=== PATIENT | female | born 1970 | race Caucasian/White ===

== ENCOUNTER 2017-10-23 13:17 | Emergency (ER) | payer OTHER ==
[2017-10-23] MEDS ORDERED: ONDANSETRON 4 MG/2 ML VIAL IVP ONE (13:40)
[2017-10-23] MEDS ORDERED: NS 1,000 ML IV ONE (13:40)
[2017-10-23 13:44] VITALS: TEMP 97.7
--- NOTE | 2017-10-23 13:44 | EDPHY ---
H & P Time Seen by Provider: 10/23/17 13:35 HPI/ROS: CHIEF COMPLAINT: Abdominal pain HISTORY OF PRESENT ILLNESS: Patient is a 46-year-old female with previous appendectomy and who presents to the emergency department with acute onset of abdominal pain. Patient states her pain came on suddenly. It started about 10 min after eating heart blood ache. She describes her pain and is just to the left of the umbilicus and low in her abdomen. It radiates to both flanks. She describes nausea but no vomiting. No diarrhea. No dysuria or frequency. No hematuria. No previous kidney stones. No fevers or chills. Last menstrual period is currently and 1 month previous. REVIEW OF SYSTEMS: My complete review of systems is negative except as mentioned in the HPI. Past Medical/Surgical History: Includes CVA, pericarditis, high cholesterol, anxiety, PTSD Past surgical history: Includes appendectomy, , abdominal plasty Social history: Patient does not smoke Smoking Status: Never smoked Physical Exam: Vitals noted GENERAL: Mild acute distress, alert. HEENT: Eyes normal to inspection, normal pharynx, no signs of dehydration. NECK: No thyromegaly, no lymphadenopathy, supple. RESPIRATORY: Clear to auscultation bilaterally, no rales, rhonchi or wheezing. CVS: Regular rate and rhythm, no rubs, murmurs, or gallops. ABDOMEN: Soft, patient has tenderness to palpation just lateral and inferior to the umbilicus, nondistended, no organomegaly. Normal bowel sounds. BACK: Normal to inspection, no CVA tenderness. SKIN: Normal color, no rash, warm, dry. No pallor. EXTREMITIES: No pedal edema, no calf tenderness, no Homans sign or cords, no joint swelling. NEURO/PSYCH: Alert and oriented x3, normal mood and affect, normal motor sensory exam. No obvious cranial nerve deficit. Constitutional: Initial Vital Signs Temperature (C) 36.5 C 10/23/17 13:39 Heart Rate 68 10/23/17 13:39 Respiratory Rate 18 10/23/17 13:39 Blood Pressure 123/84 H 10/23/17 13:39 O2 Sat (%) 99 10/23/17 13:39 O2 Delivery Mode Room Air Allergies/Adverse Reactions: No Known Allergies Allergy (Verified 10/23/17 13:33) Home Medications: Medication Instructions Recorded Sertraline HCl [Zoloft] 25 mg PO DAILY 10/19/11 buPROPion SR [Wellbutrin] 150 mg PO BID 10/19/11 Aspirin 325 mg (OTC) 12/15/14 Ambien 06/04/15 Amlodipine Besylate 10/23/17 Hydrocodone/APAP 5/325 [Faith 1 - 2 tab PO Q4 #13 tab 10/23/17 5/325 (RX)] Lisinopril 10/23/17 Methotrexate 10/23/17 Ondansetron Odt [Zofran Odt 4 mg 4 mg PO Q4PRN PRN #7 tab 10/23/17 (*)] Plaquenil 200 mg (*) 10/23/17 Medical Decision Making - Diagnostics Imaging Results: Imaging Impressions Abdomen/Pelvis CT 10/23/17 13:41 Impression: 1. No evidence of urinary tract calculus. 2. Cholelithiasis without secondary findings of cholecystitis. Attention: This CT examination is specifically designed to evaluate patients who are clinically suspected of having acute obstructive uropathy. This examination does not use radiographic contrast, and as such, provides only a limited evaluation of the abdomen, pelvis and retroperitoneum. If there is further clinical suspicion for pathological conditions other than obstructive uropathy, a complete CT evaluation of the abdomen and pelvis utilizing intravenous, oral, and rectal contrast should be considered. Findings discussed with Flor Sal M.D. at 14:36 hour, 10/23/2017. ED Course/Re-evaluation: In the emergency department I discussed possible etiologies with the patient. I answered all her questions. IV was placed. Laboratory studies were obtained. Patient was given morphine 4 mg IV for pain and Zofran 4 mg IV for nausea. Patient's white count is normal. She is not anemic. Mildly elevated platelets. The patient's chemistry panel is unremarkable. LFTs are normal. Patient's lipase is normal. is negative. On recheck the patient was feeling better. Her pain dropped to 410. She is given Toradol 30 mg IV. 240: I discussed the results with Dr. Nathan Sandoval. He states that there was no abnormality noted on the CT. I rechecked the patient. She was feeling much better. On repeat exam her abdomen was soft, nontender nondistended. I discussed possible etiologies with the patient. I answered all her questions. I offered her further observation. She would prefer to be discharged at this time. She is given warnings prior to leaving. She will return with worsening symptoms. Differential Diagnosis: My differential includes but is not limited to small-bowel obstruction, perforation, kidney stone, intussusception, volvulus, ovarian cyst, ovarian torsion, , ectopic - Data Points Laboratory Results: Laboratory Results 10/23/17 13:35 10/23/17 13:35 10/23/17 10/23/17 10/23/17 14:50 13:35 13:35 WBC RBC Hgb Hct MCV MCH MCHC RDW Plt Count MPV Neut % (Auto) Lymph % (Auto) White % (Auto) Eos % (Auto) Baso % (Auto) Nucleat RBC Rel Count Absolute Neuts (auto) Absolute Lymphs (auto) Absolute Monos (auto) Absolute Eos (auto) Absolute Basos (auto) Absolute Nucleated RBC Immature Gran % Immature Gran # Sodium 142 mEq/L mEq/L (135-145) Potassium 3.6 mEq/L mEq/L (3.5-5.2) Chloride 104 mEq/L mEq/L (97-110) Carbon Dioxide 22 mEq/l mEq/l (22-31) Anion Gap 16 mEq/L mEq/L (8-16) BUN 15 mg/dL mg/dL (7-23) Creatinine 0.8 mg/dL mg/dL (0.6-1.0) Estimated GFR > 60 Glucose 89 mg/dL mg/dL (70-100) Calcium 9.0 mg/dL mg/dL (8.5-10.4) Total Bilirubin 0.3 mg/dL mg/dL (0.1-1.4) Conjugated Bilirubin 0.1 mg/dL mg/dL (0.0-0.5) Unconjugated Bilirubin 0.2 mg/dL mg/dL (0.0-1.1) AST 18 IU/L IU/L (14-46) ALT 33 IU/L IU/L (9-52) Alkaline Phosphatase 72 IU/L IU/L (38-126) Total Protein 6.0 g/dL L g/dL (6.3-8.2) Albumin 3.4 g/dL L g/dL (3.5-5.0) Lipase 157 IU/L IU/L (23-300) Beta HCG, Qual NEGATIVE Urine Color Pending Urine Appearance Pending Urine pH Pending Ur Specific [place] Pending Urine Protein Pending Urine Ketones Pending Urine Blood Pending Urine Nitrate Pending Urine Bilirubin Pending Urine Urobilinogen Pending Ur Leukocyte Esterase Pending Urine RBC Pending Urine WBC Pending Ur Epithelial Cells Pending Urine Glucose Pending 10/23/17 13:35 WBC 7.47 10^3/uL 10^3/uL (3.80-9.50) RBC 4.07 10^6/uL L 10^6/uL (4.18-5.33) Hgb 11.2 g/dL L g/dL (12.6-16.3) Hct 34.9 % L % (38.0-47.0) MCV 85.7 fL fL (81.5-99.8) MCH 27.5 pg L pg (27.9-34.1) MCHC 32.1 g/dL L g/dL (32.4-36.7) RDW 15.9 % H % (11.5-15.2) Plt Count 423 10^3/uL H 10^3/uL (150-400) MPV 10.0 fL fL (8.7-11.7) Neut % (Auto) 61.4 % % (39.3-74.2) Lymph % (Auto) 29.2 % % (15.0-45.0) White % (Auto) 7.4 % % (4.5-13.0) Eos % (Auto) 1.6 % % (0.6-7.6) Baso % (Auto) 0.1 % L % (0.3-1.7) Nucleat RBC Rel Count 0.0 % % (0.0-0.2) Absolute Neuts (auto) 4.59 10^3/uL 10^3/uL (1.70-6.50) Absolute Lymphs (auto) 2.18 10^3/uL 10^3/uL (1.00-3.00) Absolute Monos (auto) 0.55 10^3/uL 10^3/uL (0.30-0.80) Absolute Eos (auto) 0.12 10^3/uL 10^3/uL (0.03-0.40) Absolute Basos (auto) 0.01 10^3/uL L 10^3/uL (0.02-0.10) Absolute Nucleated RBC 0.00 10^3/uL 10^3/uL (0-0.01) Immature Gran % 0.3 % % (0.0-1.1) Immature Gran # 0.02 10^3/uL 10^3/uL (0.00-0.10) Sodium Potassium Chloride Carbon Dioxide Anion Gap BUN Creatinine Estimated GFR Glucose Calcium Total Bilirubin Conjugated Bilirubin Unconjugated Bilirubin AST ALT Alkaline Phosphatase Total Protein Albumin Lipase Beta HCG, Qual Urine Color Urine Appearance Urine pH Ur Specific [place] Urine Protein Urine Ketones Urine Blood Urine Nitrate Urine Bilirubin Urine Urobilinogen Ur Leukocyte Esterase Urine RBC Urine WBC Ur Epithelial Cells Urine Glucose Medications Given: Discontinued Medications Sodium Chloride (Ns) 1,000 mls @ 0 mls/hr IV EDNOW ONE; Wide Open PRN Reason: Protocol Stop: 10/23/17 13:41 Last Admin: 10/23/17 14:10 Dose: 1,000 mls Ketorolac Tromethamine (Toradol) 30 mg IVP EDNOW ONE Stop: 10/23/17 14:36 Last Admin: 10/23/17 14:37 Dose: 30 mg Morphine Sulfate (Morphine) 4 mg IVP EDNOW ONE Stop: 10/23/17 13:41 Last Admin: 10/23/17 13:49 Dose: 4 mg Ondansetron HCl (Zofran) 4 mg IVP EDNOW ONE Stop: 10/23/17 13:41 Last Admin: 10/23/17 13:49 Dose: 4 mg Departure - Departure Disposition: Home, Routine, Self-Care Clinical Impression: Abdominal pain Qualifiers: Abdominal location: unspecified location Qualified Code(s): R10.9 - Unspecified abdominal pain Condition: Good Instructions: Acute Abdominal Pain (ED) Additional Instructions: Return with increasing pain, vomiting, fever or any other concerns. Your initial CT image was unremarkable. Referrals: Angelica Ibrahim MD [Primary Care Provider] - 1-2 days without fail Prescriptions: Hydrocodone/APAP 5/325 [Faith 5/325 (RX)] 1 - 2 tab PO Q4 #13 tab Ondansetron Odt [Zofran Odt 4 mg (*)] 4 mg PO Q4PRN PRN #7 tab PRN Reason: For Nausea & Vomiting
[2017-10-23 13:46] LABS: PLATELET COUNT 423 10^3/uL (150-400)
[2017-10-23] MEDS ORDERED: KETOROLAC 15 MG/1 ML SDV ONE (14:31)
[2017-10-23] MEDS ORDERED: KETOROLAC 30 MG/1 ML SDV ONE (14:34)
[2017-10-23] MEDS ORDERED: KETOROLAC 30 MG/1 ML SDV IVP ONE (14:35)
[2017-10-23 15:50] VITALS: BP 124/82; PULSE 76; RESP 16; O2SAT 94
== END 2017-10-23 15:25 | disposition home or self-care (01) ==
LOC: CED 13:17
DX: R10.33 Periumbilical pain (principal); E86.9 Volume depletion, unspecified; Z79.82 Long term (current) use of aspirin; Z86.73 Personal history of transient ischemic attack (TIA), and cerebral infarction without residual deficits; Z90.49 Acquired absence of other specified parts of digestive tract
CPT/HCPCS: 74176-PO; 80048-PO; 80076-PO; 81003-PO; 81015-PO; 83690-PO; 84703-PO; 85025-PO; 96374; J1885; J2405

== ENCOUNTER → 2018-12-13 | Outpatient (CLI) | payer OTHER | LOC: EMCIMAGING 11:29 | PROVIDERS: ATTEND Nurse Practitioner Family | DX: R10.2 Pelvic and perineal pain (principal); D25.0 Submucous leiomyoma of uterus | CPT/HCPCS: 76856-PN ==